=== PATIENT | male | born 1960 | race Caucasian/White ===

== ENCOUNTER → 2016-08-22 | Outpatient (REF) | payer OTHER ==
[~2016-08-22] MED LIST: /ADVA50050 INH; /CIPR75TA OR; /LINE60TA OR; ACET65TA OR; ALBU17IN2 INH; ASPI325T OR; BENA25CA PO; CLAR5CHW OR; CRES5TAB PO; DUONSOL IN; FLAG500T OR; LISI2.5T OR; LOPR50TA OR; NEUR600T PO; NITR0.4S SL; OXYCO5TA PO; PLAV75TA2 OR; PROBCAP13 PO; ROSU10TA OR; SIME180C PO; SING10TA31 OR; TYLE650T30 PO; ZEST2.5T3 PO
[2016-08-22 11:59] LABS: MEAN CORPUSCULAR HEMOGLOBIN 28.6 pg (27.0-33.0); MEAN CORPUSCULAR HGB CONC 32.9 g/dl (32.0-36.5); MEAN CORPUSCULAR VOLUME 86.8 fl (80.0-96.0); RED CELL DISTRIBUTION WIDTH 13.2 % (11.5-14.5); WHITE BLOOD COUNT 11.2 K/mm3 (4.0-10.0)
[2016-08-22 12:14] LABS: BASOPHILS 1 % (0-4)
[2016-08-22 13:11] LABS: ERYTHROCYTE SEDIMENTATION RATE 10 mm/hr (0-20)
== END ==
LOC: M LABDRAW1 11:46
PROVIDERS: ATTEND Orthopaedic Surgery
DX: Z89.512 Acquired absence of left leg below knee (principal)

== ENCOUNTER 2016-09-24 09:00 | Emergency (ER) | payer OTHER ==
[~2016-09-24] VITALS: Ht 177.8 cm; Wt 93.0 kg
[2016-09-24 09:00] VITALS: BP 132/76
[2016-09-24] MEDS ORDERED: METO37.5 PO (09:30)
[2016-09-24] MEDS ORDERED: MONT10TA2 PO (09:30)
[2016-09-24] MEDS ORDERED: MULT1TAB18 PO (09:30)
[2016-09-24] MEDS ORDERED: ASPI325T PO (09:30)
[2016-09-24] MEDS ORDERED: ROSU40TA PO (09:30)
[2016-09-24] MEDS ORDERED: LISI2.5T3 PO (09:30)
[2016-09-24] MEDS ORDERED: METO25TAB PO (09:30)
[2016-09-24] MEDS ORDERED: LORA10TA2 PO (09:30)
[2016-09-24] MEDS ORDERED: ALBU17IN INH (09:34)
[2016-09-24] MEDS ORDERED: ADV500INH INH (09:34)
[2016-09-24] MEDS ORDERED: INCR1INH IN (09:34)
[2016-09-24] MEDS ORDERED: CEPH500C PO (09:41)
[2016-09-24] MEDS ORDERED: CEPHALEXIN 500 MG CAP PO ONE (09:45)
[2016-09-24 10:08] LABS: BASO % 0.2 % (0.0-1.0); EOS # 0.2 K/mm3 (0.0-0.50); EOS % 1.4 % (0.0-3.0); LARGE UNSTAINED CELL # 0.2 K/mm3 (0.0-0.4); LARGE UNSTAINED CELL % 1.3 % (0.0-4.0); LYMPH # 3.4 K/mm3 (1.5-4.5); LYMPH % 20.4 % (24.0-44.0); MEAN CORPUSCULAR HGB CONC 33.7 g/dl (32.0-36.5); MEAN CORPUSCULAR VOLUME 86.1 fl (80.0-96.0); MONO % 5.8 % (0.0-5.0); NEUTROPHILS # 11.9 K/mm3 (1.8-7.7); NEUTROPHILS % 70.9 % (36.0-66.0); PLATELET COUNT, AUTOMATED 333 k/mm3 (150-450); RED CELL DISTRIBUTION WIDTH 13.1 % (11.5-14.5); WHITE BLOOD COUNT 16.7 K/mm3 (4.0-10.0)
[2016-09-24 10:56] LABS: ERYTHROCYTE SEDIMENTATION RATE 28 mm/hr (0-20)
== END 2016-09-24 10:01 | disposition left against medical advice (07) ==
LOC: M ED 09:30
DX: L03.116 Cellulitis of left lower limb (principal)

== ENCOUNTER → 2016-09-30 | Outpatient (REF) | payer OTHER ==
[~2016-09-30] MED LIST changes: +ADV500INH INH; +ALBU17IN INH; +ASPI325T PO; +CEPH500C PO; +INCR1INH IN; +LISI2.5T3 PO; +LORA10TA2 PO; +METO25TAB PO; +METO37.5 PO; +MONT10TA2 PO; +MULT1TAB18 PO; +ROSU40TA PO
[2016-09-30 16:03] LABS: BASO % 0.3 % (0.0-1.0); EOS # 0.2 K/mm3 (0.0-0.50); EOS % 1.4 % (0.0-3.0); LARGE UNSTAINED CELL # 0.2 K/mm3 (0.0-0.4); LARGE UNSTAINED CELL % 1.2 % (0.0-4.0); LYMPH # 3.4 K/mm3 (1.5-4.5); LYMPH % 24.7 % (24.0-44.0); MEAN CORPUSCULAR HEMOGLOBIN 28.6 pg (27.0-33.0); MEAN CORPUSCULAR HGB CONC 32.9 g/dl (32.0-36.5); MEAN CORPUSCULAR VOLUME 87.2 fl (80.0-96.0); MONO # 0.8 K/mm3 (0.0-0.8); NEUTROPHILS # 8.7 K/mm3 (1.8-7.7); NEUTROPHILS % 66.4 % (36.0-66.0); PLATELET COUNT, AUTOMATED 358 k/mm3 (150-450); RED CELL DISTRIBUTION WIDTH 13.2 % (11.5-14.5)
[2016-09-30 16:26] LABS: ERYTHROCYTE SEDIMENTATION RATE 21 mm/hr (0-20)
== END ==
LOC: M LABDRAW1 15:14
PROVIDERS: ATTEND Orthopaedic Surgery
DX: T84.06 Wear of articular bearing surface of internal prosthetic joint (principal)

== ENCOUNTER → 2016-10-21 | Outpatient (REF) | payer OTHER ==
[2016-10-21 13:26] LABS: BASO % 0.4 % (0.0-1.0); EOS # 0.3 K/mm3 (0.0-0.50); EOS % 2.6 % (0.0-3.0); LARGE UNSTAINED CELL # 0.2 K/mm3 (0.0-0.4); LARGE UNSTAINED CELL % 1.4 % (0.0-4.0); LYMPH # 3.8 K/mm3 (1.5-4.5); LYMPH % 31.6 % (24.0-44.0); MEAN CORPUSCULAR HEMOGLOBIN 28.4 pg (27.0-33.0); MEAN CORPUSCULAR VOLUME 86.1 fl (80.0-96.0); MONO # 0.7 K/mm3 (0.0-0.8); MONO % 6.4 % (0.0-5.0); NEUTROPHILS # 6.7 K/mm3 (1.8-7.7); NEUTROPHILS % 57.5 % (36.0-66.0); PLATELET COUNT, AUTOMATED 322 k/mm3 (150-450); RED CELL DISTRIBUTION WIDTH 13.1 % (11.5-14.5); WHITE BLOOD COUNT 11.6 K/mm3 (4.0-10.0)
[2016-10-21 14:47] LABS: ERYTHROCYTE SEDIMENTATION RATE 21 mm/hr (0-20)
== END ==
LOC: M LABDRAW1 12:58
PROVIDERS: ATTEND Orthopaedic Surgery
DX: T84.06 Wear of articular bearing surface of internal prosthetic joint (principal)

== ENCOUNTER → 2017-07-08 | Outpatient (REF) | payer MEDICARE ==
[2017-07-09 07:00] LABS: C REACTIVE PROTEIN QUANTITATIV 0.39 MG/DL (0.00-0.30)
[2017-07-09 07:45] LABS: SLIDE REVIEW Report; SOURCE PERIPHERAL SMEAR
[2017-07-09 07:46] LABS: REASON FOR REVIEW COMPREHENSIVE REVIEW
[2017-07-09 08:09] LABS: ERYTHROCYTE SEDIMENTATION RATE 9 mm/hr (0-20)
== END ==
LOC: M LAB REF 10:35
DX: D72.829 Elevated white blood cell count, unspecified (principal)
CPT/HCPCS: 86140

== ENCOUNTER → 2017-07-14 | Outpatient (CLI) | payer MEDICARE | LOC: M RAD 09:28 | DX: M85.80 Other specified disorders of bone density and structure, unspecified site (principal); C41.3 Malignant neoplasm of ribs, sternum and clavicle | CPT/HCPCS: 78306 ==

== ENCOUNTER → 2018-09-09 | Outpatient (CLI) | payer MEDICARE ==
[~2018-09-09] MED LIST changes: -LISI2.5T3 PO; +LISI2.5T5 PO; -LORA10TA2 PO; +LORA10TA3 PO; +METO25TA4 PO; -METO25TAB PO; -ROSU40TA PO; +ROSU40TA3 PO; +VENTAER INH; +VITA-193 PO
--- NOTE | 2018-09-09 21:28 | REP ---
LOW-DOSE CT LUNG SCREENIN09/09/2018. Comparison: CT angiogram 06/06/2013. Findings: Standard low-dose lung CT protocol was used. Only lung windows are presented for review. The lungs are hyperinflated. There is peripheral bullae and blebs in the lung bases posteriorly and some emphysematous changes mid and upper lung zones. There is some minor apical pleuroparenchymal scarring, unchanged. There is minor dependent atelectatic change. Some mild bilateral cylindrical bronchiectatic changes noted. No pleural-based mass, pleural thickening, calcified pleural plaque, parenchymal nodule, acute infiltrate or parenchymal mass. Tracheal airway and mainstem bronchi unremarkable. Impression: 1. Lung-RADS category 2, benign. Benign findings. No evidence of malignancy. Patients with this category of findings have a less than 1% chance of malignancy at the time of the examination. Recommend followup low-dose screening CT in 1 year. Electronically Signed by Pacheco Paiz MD 09/09/2018 10:12 P
== END ==
LOC: M RAD 08:51
PROVIDERS: ATTEND Internal Medicine Hematology & Oncology
DX: Z87.891 Personal history of nicotine dependence (principal)

== ENCOUNTER → 2019-09-02 | Outpatient (CLI) | payer MEDICARE ==
[~2019-09-02] MED LIST changes: -/ADVA50050 INH; -/LINE60TA OR; +ADVA1AER2 INH; +ASPI-1 PO; -ASPI325T PO; +CRES10TA32 OR; +CYAN500T9 PO; +LISI-1046 PO; -LISI2.5T5 PO; -MONT10TA2 PO; +MONT10TA4 PO; +OXYC-517 PO; -OXYCO5TA PO; -ROSU10TA OR; -ROSU40TA3 PO; +ROSU40TA4 PO; -VITA-193 PO; +ZYVO100T OR
--- NOTE | 2019-09-02 10:57 | REP ---
CT CHEST WITHOUT CONTRAST: LOW-DOSE SCREENING EXAM. HISTORY: Nicotine dependence. Comparison CT chest studies are from September 09, 2018 and June 06, 2013. CT FINDINGS: Emphysematous changes are again noted in the upper lobes bilaterally. There are subpleural blebs and mild emphysematous changes in the lower lobes. These findings are unchanged. There is no evidence of pulmonary parenchymal infiltrate or lung mass. No significant pulmonary nodule is seen. Some vascular calcifications noted. IMPRESSION: Lung-RADS category 2, benign findings. Repeat screening exam suggested in 1 year. Electronically Signed by Facundo Mosley MD 09/02/2019 08:02 P
== END ==
LOC: M RAD 08:11
PROVIDERS: ATTEND Internal Medicine Hematology
DX: Z87.891 Personal history of nicotine dependence (principal); C91.90 Lymphoid leukemia, unspecified not having achieved remission

== ENCOUNTER → 2021-09-03 | Outpatient (CLI) | payer MEDICARE ==
[~2021-09-03] MED LIST changes: -CYAN500T9 PO; -LISI-1046 PO; +LISI2.5T9 PO; -MONT10TA4 PO; +MONT10TA97 PO; +VITA500T37 PO
== END ==
LOC: M RAD 08:07
PROVIDERS: ATTEND Family Medicine
DX: Z87.891 Personal history of nicotine dependence (principal)

== ENCOUNTER → 2022-05-02 | Outpatient (CLI) | payer MEDICARE, MEDICAID | LOC: M RAD 08:27 | PROVIDERS: ATTEND Family Medicine | DX: A66.6 Bone and joint lesions of yaws (principal) | CPT/HCPCS: 78306; A9503 ==

== ENCOUNTER → 2022-12-02 | Outpatient (CLI) | payer MEDICARE, MEDICAID ==
[~2022-12-02] MED LIST changes: +IRON65TA2 PO
== END ==
LOC: M RAD 11:06
PROVIDERS: ATTEND Family Medicine
DX: Z12.2 Encounter for screening for malignant neoplasm of respiratory organs (principal); F17.210 Nicotine dependence, cigarettes, uncomplicated; J43.9 Emphysema, unspecified

== ENCOUNTER → 2025-02-14 | Outpatient (CLI) | payer MEDICARE, MEDICAID ==
[~2025-02-14] MED LIST changes: -ADV500INH INH; +ADVA1AER10 INH; +MULT-6 PO; -ROSU40TA4 PO; +ROSU40TA81 PO
== END ==
LOC: M PLARAD 12:04
PROVIDERS: ATTEND Family Medicine
DX: C79.51 Secondary malignant neoplasm of bone (principal)
CPT/HCPCS: 78815; A9552

== ENCOUNTER → 2025-02-18 | Outpatient (CLI) | payer MEDICARE, MEDICAID ==
[~2025-02-18] MED LIST changes: +ISOVUE-370 76% 100 ML VIAL As Ordered ONE
== END ==
LOC: M RAD 15:24
DX: R63.4 Abnormal weight loss (principal)
CPT/HCPCS: 71260; 74177; Q9967

== ENCOUNTER → 2025-04-14 | Outpatient (CLI) | payer MEDICARE, MEDICAID ==
[~2025-04-14] MED LIST changes: -ISOVUE-370 76% 100 ML VIAL As Ordered ONE; +LIDOCAINE 1% MDV 20 ML VIAL SC ONE
[2025-04-14 14:26] VITALS: TEMP 97.8
[2025-04-14 15:12] VITALS: BP 144/80; O2SAT 99
== END ==
LOC: M IRPRO 14:10
PROVIDERS: ATTEND Internal Medicine Medical Oncology
DX: D47.2 Monoclonal gammopathy (principal)

== ENCOUNTER → 2025-05-23 | Outpatient (CLI) | payer MEDICARE, MEDICAID ==
[~2025-05-23] MED LIST changes: +ISOVUE-370 76% 100 ML VIAL As Ordered ONE; -LIDOCAINE 1% MDV 20 ML VIAL SC ONE
== END ==
LOC: M RAD 10:11
PROVIDERS: ATTEND Internal Medicine Medical Oncology
DX: D72.820 Lymphocytosis (symptomatic) (principal)
CPT/HCPCS: 71260; 74177; Q9967

== ENCOUNTER → 2025-06-10 | Outpatient (CLI) | payer MEDICARE, MEDICAID ==
[~2025-06-10] MED LIST changes: -ISOVUE-370 76% 100 ML VIAL As Ordered ONE
== END ==
LOC: M PLARAD 13:52
PROVIDERS: ATTEND Student in an Organized Health Care Education/Training Program
DX: S86.011A Strain of right Achilles tendon, initial encounter (principal); R60.0 Localized edema; X58.XXXA Exposure to other specified factors, initial encounter; Y92.9 Unspecified place or not applicable; Y93.9 Activity, unspecified; Y99.9 Unspecified external cause status